=== PATIENT | female | born 1990 | race Caucasian/White ===

== ENCOUNTER 2018-01-21 14:40 | Emergency (ER) | payer MEDICAID ==
[~2018-01-21 14:40] MED LIST: ONDA8TAB6 PO
== END 2018-01-21 17:24 | disposition left against medical advice (07) ==
LOC: ER 14:41
DX: G43.909 Migraine, unspecified, not intractable, without status migrainosus (principal); Z53.21 Procedure and treatment not carried out due to patient leaving prior to being seen by health care provider

== ENCOUNTER 2019-12-06 14:47 | Outpatient (CLI) | payer MEDICAID ==
[2019-12-06 15:49] LABS: BASOPHILS # (AUTO) 0.1 X10'3 (0-0.2); BASOPHILS % (AUTO) 0.7 % (0-1); EOSINOPHILS # (AUTO) 0.1 X10'3 (0-0.9); EOSINOPHILS % (AUTO) 1.5 % (0-6); HEMATOCRIT 39.1 % (35.0-45.0); LYMPHOCYTES # (AUTO) 2.7 X10'3 (1.1-4.8); LYMPHOCYTES % (AUTO) 32.2 % (21-51); MEAN CORPUSCULAR HEMOGLOBIN 30.2 PG (27.0-31.0); MEAN CORPUSCULAR HGB CONC 33.2 g/dL (33.0-36.5); MEAN CORPUSCULAR VOLUME 90.9 FL (78-98); MEAN PLATELET VOLUME 7.6 FL (7.4-10.4); MONOCYTES # (AUTO) 0.5 X10'3 (0-0.9); MONOCYTES % (AUTO) 5.8 % (2-12); NEUTROPHILS % (AUTO) 59.8 % (42-75); PLATELET COUNT 291 X10'3 (140-440); RED CELL DISTRIBUTION WIDTH 12.8 % (11.5-14.5); WHITE BLOOD COUNT 8.3 X10'3 (4.5-11.0)
[2019-12-06 16:03] LABS: ALANINE AMINOTRANSFERASE 18 U/L (12-78); ALBUMIN 3.9 G/DL (3.4-5.0); ALBUMIN/GLOBULIN RATIO 1.1 (1.1-1.5); ALKALINE PHOSPHATASE 62 IU/L (46-116); ANION GAP 4 (8-16); ASPARTATE AMINO TRANSFERASE 16 U/L (10-37); BILIRUBIN,TOTAL 0.1 MG/DL (0.1-1.0); BLOOD UREA NITROGEN 6 MG/DL (7-18); BUN/CREATININE RATIO 8.5 (6.6-38.0); CHLORIDE 105 MMOL/L (99-107); CREATININE 0.71 MG/DL (0.40-0.90); GLUCOSE 69 MG/DL (70-104); SODIUM 140 MMOL/L (135-145); TOTAL CARBON DIOXIDE 30.7 MMOL/L (24-32); TOTAL PROTEIN 7.4 G/DL (6.4-8.2); eGFR > 90 ML/MIN
== END 2019-12-06 15:41 | disposition home or self-care (01) ==
LOC: WOUND CARE 14:47
PROVIDERS: ATTEND Nurse Practitioner
DX: L02.211 Cutaneous abscess of abdominal wall (principal); G43.909 Migraine, unspecified, not intractable, without status migrainosus; F17.200 Nicotine dependence, unspecified, uncomplicated
CPT/HCPCS: 36415; 80053; 85025; G0463

== ENCOUNTER 2019-12-09 10:45 | Outpatient (CLI) | payer MEDICAID | END 2019-12-09 11:25 | disposition home or self-care (01) | LOC: WOUND CARE 10:45 | PROVIDERS: ATTEND Nurse Practitioner | DX: L02.211 Cutaneous abscess of abdominal wall (principal); G43.909 Migraine, unspecified, not intractable, without status migrainosus; F17.200 Nicotine dependence, unspecified, uncomplicated | CPT/HCPCS: G0463 ==

== ENCOUNTER 2020-07-28 16:07 | Emergency (ER) | payer MEDICAID ==
[~2020-07-28] VITALS: Ht 160 cm; Wt 64.0 kg
[2020-07-28 16:29] LABS: URINE HCG NEGATIVE (NEG)
[2020-07-28 16:30] LABS: CLARITY,URINE SLIGHTLY CLOUDY (Clear); COLOR,URINE YELLOW (Yellow); GLUCOSE, URINE NEGATIVE (Neg); KETONES,URINE NEGATIVE (Neg); LEUKOCYTE ESTERASE ,URINE MODERATE (Neg); NITRITES, URINE NEGATIVE (Neg); OCCULT BLOOD,URINE MODERATE (Neg); PH,URINE 6.5 (4.8-8.0); PROTEIN,URINE NEGATIVE (Neg); UROBILINOGEN,URINE 0.2 E.U/dL (0.2-1.0)
[2020-07-28 16:38] LABS: UA COLLECTION TYPE CLN CATCH MIDSTREAM
[2020-07-28 16:42] LABS: BACTERIA,URINE FEW /HPF (Neg); MUCUS STRANDS FEW /LPF (Neg); SQUAMOUS EPITHELIAL CELL,UR MANY /LPF (FEW); TRICHOMONAS,URINE MANY /HPF (NEGATIVE)
--- NOTE | 2020-07-28 16:42 | NUR ---
PATIENT IS ATTEMPTING TO PROVIDE ANOTHER URINE
[2020-07-28] MEDS ORDERED: phenazopyridine 100mg tablet PO ONE (18:00)
[2020-07-28] MEDS ORDERED: CEPH-572 PO (18:00)
[2020-07-28] MEDS ORDERED: cephalexin 250mg capsule PO ONE (18:00)
[2020-07-28] MEDS ORDERED: PHEN-824 PO (18:00)
[2020-07-28] MEDS ORDERED: HYDROcodone/acetaminophen 5mg/325mg tablet PO ONE (18:05)
[2020-07-28 18:16] VITALS: BP 114/82
== END 2020-07-28 18:13 | disposition home or self-care (01) ==
LOC: ER 16:08
DX: N10 Acute pyelonephritis (principal); R30.0 Dysuria; R10.30 Lower abdominal pain, unspecified; Z87.440 Personal history of urinary (tract) infections; Z79.2 Long term (current) use of antibiotics; Z79.899 Other long term (current) drug therapy
CPT/HCPCS: 76775; 81001; 81025; 99284

== ENCOUNTER 2021-04-18 00:18 | Emergency (ER) | payer MEDICAID ==
[~2021-04-18] VITALS: Ht 160 cm; Wt 61.4 kg
[~2021-04-18 00:18] MED LIST changes: +PHEN-824 PO
--- NOTE | 2021-04-18 03:01 | NUR ---
Family at bedside with patient. Patient has been resting quietly in bed, turning side to side independently. Even and unlabored respirations.
[2021-04-18] MEDS ORDERED: NALO4SPR BOTHNARES (03:47)
[2021-04-18 03:59] VITALS: BP 102/61
== END 2021-04-18 04:00 | disposition home or self-care (01) ==
LOC: ER 00:19
DX: T40.2X1A Poisoning by other opioids, accidental (unintentional), initial encounter (principal); Z87.440 Personal history of urinary (tract) infections; Z79.899 Other long term (current) drug therapy; Y92.89 Other specified places as the place of occurrence of the external cause
CPT/HCPCS: 99285

== ENCOUNTER 2023-08-21 15:38 | Emergency (ER) | payer MEDICAID ==
[~2023-08-21] VITALS: Ht 160 cm; Wt 59.0 kg
[~2023-08-21 15:38] MED LIST changes: +NALO4SPR BOTHNARES
[2023-08-21 15:39] VITALS: BP 131/82; PULSE 118; RESP 16; TEMP 98; O2SAT 97
[2023-08-21] MEDS ORDERED: MUPI22OI30 TOP (16:10)
[2023-08-21] MEDS ORDERED: CEPH-585 PO (16:10)
[2023-08-21] MEDS ORDERED: SULF1TAB49 PO (16:10)
== END 2023-08-21 16:24 | disposition home or self-care (01) ==
LOC: ER 15:39
DX: L03.116 Cellulitis of left lower limb (principal); Z79.899 Other long term (current) drug therapy
CPT/HCPCS: 99283

== ENCOUNTER 2023-09-08 14:25 | Emergency (ER) | payer MEDICAID ==
[~2023-09-08 14:25] MED LIST changes: +CEPH-585 PO
== END 2023-09-08 16:02 | disposition left against medical advice (07) ==
LOC: ER 14:26
DX: M79.10 Myalgia, unspecified site (principal); Z53.21 Procedure and treatment not carried out due to patient leaving prior to being seen by health care provider